=== PATIENT | male | born 1945 | race Caucasian/White ===

== ENCOUNTER 2017-07-22 11:01 | Inpatient (IN) | payer BC, OTHER ==
[2017-07-16 15:01] VITALS: BMI 28.0
--- NOTE | 2017-07-16 15:22 | PAT Medication Instructions ---
Service Date Jul 16, 2017. Current Home Medication List Aspirin (Aspirin Chewable), 81 MG PO QAM Atorvastatin (Lipitor), 40 MG PO QPM Cholecalciferol (Vitamin D3), 1 TAB PO QAM Diphenhydramine Hcl (Benadryl Allergy), 1 CAP PO HS Fish Oil ([place]-3), 1 CAP PO QAM Lisinopril (Zestril), 10 MG PO QAM Multivitamin (Multivitamin), 1 TAB PO QAM Omeprazole (Prilosec), 20 MG PO DAILY Ropinirole (Requip), 2-3 TAB PO HS Medication Instructions For Your Scheduled Surgery - Hold the following medications starting 07/17/17: Fish Oil ([place]-3), 1 CAP PO QAM - Hold the following medications 24 hours prior to surgery: Ropinirole (Requip), 2-3 TAB PO HS - Hold the following medications the morning of surgery: Multivitamin (Multivitamin), 1 TAB PO QAM Lisinopril (Zestril), 10 MG PO QAM Cholecalciferol (Vitamin D3), 1 TAB PO QAM - Take the following medications the morning of surgery with a sip of water: Aspirin (Aspirin Chewable), 81 MG PO QAM Omeprazole (Prilosec), 20 MG PO DAILY - Take the following medications as scheduled the night before surgery: Diphenhydramine Hcl (Benadryl Allergy), 1 CAP PO HS Atorvastatin (Lipitor), 40 MG PO QPM If you have any questions please call us at [phone] or [phone] or [phone]
[2017-07-16 15:52] LABS: BASO % 0.3 %; BASO ABS # 0.02 K/uL (0-0.2); EOS % 4.1 %; EOS ABS # 0.26 K/uL (0-0.5); HEMATOCRIT 42.6 % (42-52); HEMOGLOBIN 15.3 g/dL (14.0-18.0); IG# 0.01 K/uL (0.00-0.02); LYMPH % 18.9 %; MEAN CELL VOLUME 91.4 fL (80-100); MEAN CORPUSCULAR HEMOGLOBIN 32.8 pg (25-34); MEAN CORPUSCULAR HGB CONC 35.9 g/dl (32-36); MEAN PLATELET VOLUME 10.9 fL (7.4-10.4); MONO % 7.9 %; NEUT % 68.6 %; NEUT ABS # 4.36 K/uL (1.4-6.5); PLATELET COUNT 189 K/uL (130-400); RED CELL DISTRIBUTION WIDTH CV 12.6 % (11.5-14.5); WHITE BLOOD COUNT 6.35 K/uL (4.8-10.8)
[2017-07-16 16:00] LABS: PTT PATIENT 26.8 SECONDS (21.0-31.0)
--- NOTE | 2017-07-16 16:03 | DIAGNOSTIC IMAGING REPORT ---
CHEST 2 VIEWS ROUTINE HISTORY: Preop. COMPARISON: None. FINDINGS: The lungs are clear. Cardiac silhouette is normal in size. No pleural effusions. No pneumothorax. Right shoulder prosthesis. IMPRESSION: No acute process. Electronically signed by: Ha Butcher M.D. 07/16/2017 4:02 PM Dictated Date/Time: 07/16/2017 4:01 PM
[2017-07-16 16:18] LABS: CALCIUM 8.9 mg/dl (8.5-10.1); CREATININE 0.94 mg/dl (0.60-1.40); POTASSIUM 4.3 mmol/L (3.5-5.1)
--- NOTE | 2017-07-21 21:29 | HISTORY & PHYSICAL EXAMINATION ---
DATE OF ADMISSION: 07/22/2017 He is being preoped for a PLIF procedure L5-S1. CHIEF COMPLAINT: Back pain, lower extremity difficulty, paresthesias, numbness, tingling, associated weakness and walking alteration. MEDICAL HISTORY: Positive for heart murmur, hypertension, high cholesterol. No diabetes. No anemia. No asthma. No anxiety. No kidney or liver issues. No prostate issues. He has obesity and acid reflux. SOCIAL HISTORY: Nonsmoker, does use marijuana. SURGICAL HISTORY: Total knee replacement, right shoulder replacement. ALLERGIES: Negative. MEDICATIONS: Lisinopril, Lipitor, multivitamins, vitamin D, fish oil, aspirin. REVIEW OF SYSTEMS: Denies any blurred vision, double vision, tinnitus, vertigo. Denies chest pain, palpitations. Denies asthma, wheezing, shortness of breath. Denies nausea, vomiting, urgency, frequency, dysuria. PHYSICAL EXAMINATION: GENERAL: He is alert, oriented, mentation normal. VITAL SIGNS: Blood pressure 140/80, pulse 80, respiratory rate 16, temperature 97.4. HEENT: Pupils react to light and accommodation. Ear, nose and throat clear. CARDIAC: Normal S1, S2. No S3. LUNGS: Clear to auscultation. No asthma, wheezing, shortness of breath. No nausea, vomiting, urgency, frequency. MUSCULOSKELETAL: He has decreased range of motion of his lumbar spine. Pain with percussion of lumbar spine. NEUROLOGIC: Intact. X-rays demonstrate spondylolisthesis of the spine at L5-S1. PROCEDURE: Included posterior lumbar interbody fusion L5-S1.
[~2017-07-22] VITALS: Ht 170.2 cm; Wt 81.2 kg
[2017-07-22] VITALS (7 sets, daily range): BP systolic 123–161; BP diastolic 70–88; PULSE 62–89; TEMP 35.8–36.5; O2SAT 96–99; Ht 170.2 cm; Wt 81.2 kg
[~2017-07-22 11:01] MED LIST: ACETAMINOPHEN 500 MG TAB PO SCH; ACETAMINOPHEN IV 1000MG/100ML IV SCH; ASPCH81X PO; ATOR-24 PO; CEFAZOLIN 2000MG IV PUSH 15 ML IV SCH; CHOL1000 PO; CeleBREX 200 MG CAP PO SCH; DIPH25CA65 PO; GABAPENTIN 300 MG CAP PO SCH; LACTATED RINGER'S 1000ML 1,000 ML IV SCH; LISI-461 PO; MULT-506 PO; NSS 1000ML IV SCH; OMEG10007 PO; PRLSR20 PO; ROPI0.25 PO
[2017-07-22] MEDS ORDERED: MIDAZOLAM HCL 1 MG/ML 2ML VIAL ONE (11:23)
[2017-07-22] MEDS ORDERED: FENTANYL CITRATE INJ 50 MCG/1 ML 2 ML VIAL ONE (11:24)
[2017-07-22] MEDS ORDERED: GELATIN SPONGE OP 25X50MM 1 EA SPNG ONE (12:59)
[2017-07-22] MEDS ORDERED: BACITRACIN 50000 UNIT VIAL ONE (12:59)
[2017-07-22] MEDS ORDERED: BUPIVACAINE/EPINEPHRINE 0.5% MPF 1:200,000 30 ML VIAL ONE (12:59)
[2017-07-22] MEDS ORDERED: THROMBIN FOR SOLN 20000 UNIT KIT ONE (12:59)
--- NOTE | 2017-07-22 13:14 | History & Physical Bridge Note ---
H&P Re-Evaluation Bridge Note: I have examined the patient, reviewed the History & Physical and in the interval since the performance of the History & Physical I have noted the following changes of clinical significance: No changes noted
[2017-07-22] MEDS ORDERED: VANCOMYCIN HCL 1000MG/20ML VIAL ONE (13:25)
[2017-07-22] MEDS ORDERED: LARYING-O-JET KIT (LTA) ONE (14:15)
[2017-07-22] MEDS ORDERED: DEXAMETHASONE SOD INJ 4 MG/ML VIAL ONE (14:15)
[2017-07-22] MEDS ORDERED: LIDOCAINE HCL 2% 2 ML VIAL (20MG/ML) ONE (14:15)
[2017-07-22] MEDS ORDERED: GLYCOPYRROLATE INJ 0.2 MG/ML VIAL ONE (14:15)
[2017-07-22] MEDS ORDERED: HYDROmorphone INJ 2 MG/ML SYR/VIAL ONE (14:15)
[2017-07-22] MEDS ORDERED: ONDANSETRON INJ 2 MG/ML 2 ML VIAL ONE (14:15)
[2017-07-22] MEDS ORDERED: PROPOFOL IV EMULSION 10 MG/ML 20 ML VIAL IV ONE (14:15)
[2017-07-22] MEDS ORDERED: CISATRACURIUM BESYLATE IV SOLN 2 MG/ML 10 ML VIAL ONE (14:15)
[2017-07-22] MEDS ORDERED: NEOSTIGMINE METHYLSULFATE 5 MG/5 ML SYR ONE (14:15)
[2017-07-22] MEDS ORDERED: EpHEDrine SULFATE 50MG/5ML SYR ONE ×2 (14:15→15:18)
[2017-07-22] MEDS ORDERED: GELATIN SPONGE SZ 100 ONE (14:21)
[2017-07-22] MEDS ORDERED: ATROPINE SULFATE 0.1 MG/ML 5ML SYR IV PRN (15:15)
[2017-07-22] MEDS ORDERED: PROMETHAZINE HCL INJ 12.5 MG in SODIUM CHLORIDE 0.9% 50ML 50 ML IV PRN ×2 (15:15→16:15)
[2017-07-22] MEDS ORDERED: NALOXONE HCL 0.4 MG/1 ML VIAL/CARP IV PRN ×2 (15:15→16:15)
[2017-07-22] MEDS ORDERED: EpHEDrine SULFATE INJ 50 MG/ML AMP IV PRN (15:15)
[2017-07-22] MEDS ORDERED: FLUMAZENIL 0.1 MG/1 ML 10 ML VIAL IV PRN (15:15)
[2017-07-22] MEDS ORDERED: HYDROmorphone INJ 1 MG/ML SYR IV PRN (15:15)
[2017-07-22] MEDS ORDERED: ONDANSETRON INJ 2 MG/ML 2 ML VIAL IV PRN ×2 (15:15→16:15)
[2017-07-22] MEDS ORDERED: LABETALOL HCL IV 5 MG/ML 20ML IV PRN (15:15)
--- NOTE | 2017-07-22 15:54 | DIAGNOSTIC IMAGING REPORT ---
INTRAOPERATIVE LUMBAR SPINE SINGLE VIEW CLINICAL HISTORY: L5-S1 POSTERIOR LUMBAR INTERBODY FUSION COMPARISON STUDY: No previous studies for comparison. FINDINGS: A single lateral fluoroscopic spot film is provided for interpretation. 8 seconds of fluoroscopic time was utilized. There is a grade 1 spondylolisthesis of L5 on S1. There are postsurgical changes of discectomy and interbody fusion at the L5-S1 level. L5 and S1 pedicle screws are visualized. IMPRESSION: Intraoperative radiograph as described above. Electronically signed by: Anatoliy Gallegos M.D. 07/22/2017 3:52 PM Dictated Date/Time: 07/22/2017 3:51 PM
[2017-07-22] MEDS ORDERED: SODIUM CHLORIDE 0.9% 1000ML 1,000 ML IV SCH ×2 (16:01)
--- NOTE | 2017-07-22 16:03 | [facility] Post Operative Brief Note ---
Immediate Operative Summary Operative Date Jul 22, 2017. Pre-Operative Diagnosis Spondylisthesis of Spine L5-S1 Post-Operative Diagnosis Spondylisthesis of Spine L5-S1 Procedure(s) Performed L5-S1 Posterior Lumbar Interbody Fusion Surgeon Dr. Sidney Nelson Clinical Rehabilitation Coordinator Surgeon(s) Jose Go PA-C Estimated Blood Loss 250cc Findings Consistent with Post-Op Diagnosis Specimens None as per surgeon Drains hemovac Anesthesia Type General Complication(s) none Disposition Accompanied Pt To Recover: Disposition: Recovery Room / PACU
[2017-07-22] MEDS ORDERED: LORAZEPAM INJ 1 MG in SYRINGE 0.5 ML IV PRN (16:15)
[2017-07-22] MEDS ORDERED: ACETAMINOPHEN 325 MG TAB PO PRN (16:15)
[2017-07-22] MEDS ORDERED: MAGNESIUM HYDROXIDE SUSP 30 ML UDC PO PRN (16:15)
[2017-07-22] MEDS ORDERED: LORAZEPAM 1 MG TAB PO PRN (16:15)
[2017-07-22] MEDS ORDERED: METOCLOPRAMIDE HCL INJ 5 MG/ML 2 ML VIAL IV PRN (16:15)
[2017-07-22] MEDS ORDERED: CEFAZOLIN IV 1,000 MG in DEXTROSE 5% 50ML 50 ML IV SCH (16:15)
[2017-07-22 16:47] LABS: HEMATOCRIT 38.6 % (42-52); HEMOGLOBIN 13.6 g/dL (14.0-18.0)
--- NOTE | 2017-07-22 16:47 | Anesthesiology Progress Note ---
Anesthesia Post Op Note Date & Time Jul 22, 2017 at 16:47 Vital Signs Pain Intensity: 3 Vital Signs Past 12 Hours Date Time Temp Pulse Resp B/P (MAP) Pulse Ox O2 Delivery O2 Flow Rate FiO2 07/22/17 16:40 81 16 135/70 99 Nasal Cannula 4 07/22/17 16:30 90 14 155/74 100 Nasal Cannula 4 07/22/17 16:20 92 16 128/63 100 Oxymask 15 07/22/17 16:10 94 23 134/65 99 Oxymask 15 07/22/17 16:00 36.1 71 12 111/61 97 Oxymask 15 07/22/17 11:24 36.5 62 18 157/81 98 Room Air Notes Mental Status: alert / awake / arousable, participated in evaluation Pt Amnestic to Procedure: Yes Nausea / Vomiting: adequately controlled Pain: adequately controlled Airway Patency, RR, SpO2: stable & adequate BP & HR: stable & adequate Hydration State: stable & adequate Anesthetic Complications: no major complications apparent
[2017-07-22] MEDS: HYDROmorphone HCL 0.5MG/ML 50 ML CASSETTE IV PRN ×2 (17:10→22:52)
[2017-07-22] MEDS: ATORVASTATIN 40 MG TAB PO SCH (21:12)
[2017-07-22] MEDS: CEFAZOLIN IV 2,000 MG in SYRINGE 0 ML IV SCH (21:12)
[2017-07-22] MEDS: DEXAMETHASONE INJ 10 MG in SYRINGE 0 ML IV SCH (21:13)
[2017-07-22] MEDS ORDERED: NURSING VERBAL MED ORDER ONE (22:15)
--- NOTE | 2017-07-23 00:03 | OPERATIVE REPORT ---
DATE OF OPERATION: 07/22/2017 PREOPERATIVE DIAGNOSIS: Grade 1 spondylolisthesis, lumbar spine. POSTOPERATIVE DIAGNOSIS: Same. PROCEDURE: Included: 1. Lumbar spine laminectomy, foraminotomy, partial facetectomy. 2. Frankel procedure which is removal of the entire posterior elements of L5. 3. Pedicle screw instrumentation L5-S1. 4. Complete discectomy L5-S1. 5. Posterior lumbar interbody fusion packed with allograft and implant from the [employer]. 6. Posterolateral bilateral bone onlay fusion. SURGEON: Dr. Nelson. DUCT INSTALLER: Jose Go PA-C. COMPLICATIONS: Zero. BLOOD LOSS: 250. ANESTHETIC: General. DESCRIPTION OF PROCEDURE: The patient was taken to the operating room, a general intubated anesthetic provided to the patient, placed prone on the Tomi table. He was shaved, scrubbed, prepped and draped sterile. We made a skin incision and fascial incision, putting a deep self-retaining retractor. The visibility was perfect. We were out over the transverse process and sacral ala. I decompressed the neural elements. I was able to get the entire lamina of L5 removed. We completed the foraminotomies. We then safely got pedicle screws into L5 and the sacrum bilaterally. We then retracted the dura over in a medial direction from the right side. I was able to do a complete discectomy from the right hand side, putting in an interbody cage, preceded with autograft pack into the intervertebral area. We then tightened down the construct under compression, bone graft out of the transverse processes with autograft as well. Closed fascia to fascia over Hemovac drain over vancomycin powder with #1 Vicryl suture, 2-0 on the subcuticular layer and nylon on the skin. Sterile dressings applied. The patient returned to recovery room satisfactory and stable. There were no apparent interoperative complications. Implants used by the [employer]. Sponge and needle count correct at the close. I attest to the content of the Intraoperative Record and any orders documented therein. Any exception s are noted below.
[2017-07-23 03:10] VITALS: BP 120/70; PULSE 73; TEMP 36.4; O2SAT 97
[2017-07-23] MEDS ORDERED: COUGH DROP (SUGAR FREE) LOZ 24 LOZ/1 BOX LOZ ONE (04:36)
[2017-07-23] MEDS ORDERED: NURSING DECISION MEDICATION ORDER SCH (04:45)
[2017-07-23] MEDS: DEXAMETHASONE INJ 10 MG in SYRINGE 0 ML IV SCH ×3 (05:50→21:28)
[2017-07-23] MEDS: CEFAZOLIN IV 2,000 MG in SYRINGE 0 ML IV SCH ×2 (05:51→13:42)
[2017-07-23] MEDS ORDERED: BISACODYL 10 MG SUPP PR PRN (06:00)
[2017-07-23] MEDS ORDERED: BISACODYL 5 MG TABEC PO PRN (06:00)
[2017-07-23] MEDS ORDERED: COUGH DROP (SUGAR FREE) LOZ 24 LOZ/1 BOX LOZ PRN (07:00)
[2017-07-23] MEDS: HYDROmorphone HCL 0.5MG/ML 50 ML CASSETTE IV PRN (07:09)
[2017-07-23 07:43] VITALS: BP 124/67; PULSE 88; TEMP 36.4; O2SAT 98
[2017-07-23] MEDS ORDERED: OXYCODONE/ACETAMINOPHEN 5-325 TAB PO PRN (08:00)
[2017-07-23] MEDS ORDERED: HYDROmorphone INJ 1 MG/ML SYR IV PRN (08:00)
[2017-07-23] MEDS ORDERED: HYDROmorphone INJ 2 MG/ML SYR/VIAL IV PRN (08:00)
[2017-07-23] MEDS ORDERED: DC PCA SCH (08:00)
[2017-07-23] MEDS: ASPIRIN 81 MG ECTAB PO SCH (08:46)
[2017-07-23] MEDS: PANTOprazole SOD 40 MG TAB PO SCH (08:47)
[2017-07-23] MEDS: MULTIVITAMIN TAB PO SCH (08:47)
[2017-07-23] MEDS: LISINOPRIL 10 MG TAB PO SCH (08:47)
[2017-07-23] MEDS: POLYETHYLENE (MIRALAX) 17 GM PACK PO SCH (08:48)
[2017-07-23] MEDS: OXYCODONE/ACETAMINOPHEN 5-325 TAB PO PRN ×2 (09:58→10:57)
[2017-07-23] MEDS ORDERED: NURSING VERBAL MED ORDER ONE ×3 (10:30→18:45)
[2017-07-23] MEDS ORDERED: CHLORASEPTIC 1.4% SOLN 180 ML BTL MT PRN (11:00)
[2017-07-23 11:56] VITALS: BP 120/66; PULSE 65; TEMP 36.6; O2SAT 96
[2017-07-23] MEDS ORDERED: HYDR-4383 PO (12:49)
--- NOTE | 2017-07-23 12:50 | Discharge Instructions ---
Discharge Instructions Date of Service Jul 23, 2017. Admission Reason for Admission: Spondylolisthesis Discharge Discharge Diagnosis / Problem: same Discharge Goals Goal(s): Improve function Activity Recommendations Activity Limitations: as noted below Lifting Limitations: until after follow-up appointment Exercise/Sports Limitations: until after follow-up appointment . Instructions / Follow-Up Instructions / Follow-Up MEDICATIONS: Please take your prescriptions as instructed at your pre-op appointment. SPECIAL CARE: The following information is intended to answer some of the common questions and concerns regarding your surgery. Each patient is an individual and receives individual counselling throughout the course of treatment, from diagnosis to surgery all the way through recovery. What follows is not an exhaustive list, but should be a useful guide to some of the common questions and concerns patients have regarding their surgeries. These are not provided to keep you from calling us; rather, they give you something accurate and concrete to reference as you recover from your procedure. If you need us, we are available to you. As always, if you are not sure about something, call us at [phone]. MEDICAL EMERGENCIES: For these conditions, call 911 or go to your local hospital-based Emergency Department - not [facility] or equivalent. * Paralysis * Severe chest pain or difficulty breathing * Swelling or redness of either leg Spine procedures can be rather complex and though complications are rare, they do occur. In such cases, effective advice regarding emergency situations cannot always be addressed over the telephone. You may be referred to the emergency department for more effective management of your problem. Activity Limitations: It is important to give your body time to heal, so please limit your activities : * In general, don't do anything that moves your spine too much. You should avoid contact sports, twisting or heavy lifting while you recover. * 5-10 pounds is all you should attempt to lift. * You should not plan on driving for approximately 3 weeks and you should avoid traveling more than 30-45 minutes at a time. Longer trips should be broken down with walking breaks spaced appropriately. * Physical therapy is not usually required. * Walking and good posture practices will help you recover and regain your function. * Avoid straining or sudden changes in position. * In general, the goal is to take it easy and recover. Don't cause any new problems. Just relax. Showers: * Do not take a bath, use a Jacuzzi or hot tub or otherwise submerge your incision. * It is usually safe to take a shower 4-5 days after your surgery. * Your incision does not require any special creams or ointments. * Simply clean it with soap and water, dry and re-dress with a clean bandage afterwards. Incision: * Keep incision clean, dry and protected until your first follow-up appointment. * Some amount of drainage and redness is normal. Any drainage should be fairly clear and not have a foul odor. * If you feel anything is wrong or you have excessive drainage, please call us. * Your stitches and ernesto will be removed 10-14 days after your surgery. At the time of your first post-op visit. * Neck surgeries are typically closed with a suture underneath the skin. The steri-strips over the incision should be maintained until we see you in the office. Bracing: * You may be provided with a back or neck brace to encourage good posture and prevent injury. It will remind you not to do too much as you heal and will alert others to the fact that you have had a surgery. * Back braces may be removed for showers and when you are resting at home. They must be worn when you are walking around for any period of time or for travel. * For neck surgery, you will likely be provided with two cervical collars. The soft collar (Woodruff or foam rubber) is worn most commonly throughout the day and while sleeping. The plastic collar (provided at the hospital) is for showering/bathing. * Except while eating, collars should remain in place. More specifically, bracing is provided for a purpose and should be worn. * Please obtain your brace or collars prior to your operation and bring them to the hospital with you on the day of surgery. * You should also bring your collars to your post-op appointment with Dr. Nelson. You should always take good care of your body and practice healthy habits, especially following surgery. You should: * Follow your doctor's treatment plan * Sit and stand properly with good posture (ears over shoulders, shoulders over hips) Don't slouch * Learn to lift correctly * Exercise regularly (low-impact aerobic exercise is especially good, but check with your doctor first) * Generally, be up and walking for 5-10 minutes at a time at least 3-4 times per day from the day you get home * Increasing walking to tolerance until you can walk for 20-30 minutes at a time * Attain and maintain a healthy body weight * Eat healthy foods ( a well-balanced, low-fat diet rich in fruits and vegetables) and get enough calcium * Avoid excessive use of alcohol When to call our office - If you notice any of the following: * Increased pain not relieve by pain medicine * Fevers greater then 100 degrees F, chills or flu symptoms * Increased redness around incision * Drainage from the incision that is not clear * Any foul smelling drainage * Swelling or fluid collection beneath the skin Miscellaneous: * In the hospital, you may be given a walker or cane for support while walking. These are temporary needs and are intended to prevent injuries due to falls. You may discontinue them when you feel strong and steady enough on your feet. * Sleep in a comfortable position. We find that many patients find a lounge chair or recliner with several pillows to be beneficial in the early post-operative period. * The support stockings should be used for 7-10 days and may be discontinued when you are back to walking more and conducting usual household activities. No problem is insignificant. We are here to help you and get you well. Contact us at [phone]. Definitions: Foraminotomy: If part of the disc or a bone spur (osteophyte) is pressing on a nerve as it leaves the vertebra (through an exit called the foramen), a foraminotomy may be done. Otomy means "to make an opening." A foraminotomy is making the opening of the foramen larger, so the nerve can exit without being compressed. Laminotomy: Similar to the foraminotomy, a laminotomy makes a larger opening, this time in your bony plate protecting your spinal canal and spinal cord (the lamina). The lamina may be pressing on your nerve, so the surgeon may make more room for the nerves using a laminotomy. Laminectomy: Sometimes, a laminotomy is not sufficient. The surgeon may need to remove all or part of the lamina. This procedure is called a laminectomy. This can often be done at many levels without any harmful effects. Current Hospital Diet Patient's current hospital diet: Regular Diet Discharge Diet Recommended Diet: Regular Diet Procedures Procedures Performed: L5-S1 Posterior Lumbar Interbody Fusion Pending Studies Studies pending at discharge: no Medical Emergencies . Who to Call and When: Medical Emergencies: If at any time you feel your situation is an emergency, please call 911 immediately. . Non-Emergent Contact Non-Emergency issues call your: Primary Care Provider . "Provider Documentation" section prepared by Sidney Nelson. . VTE Core Measure Inpt VTE Proph given/why not?: Treatment not indicated
--- NOTE | 2017-07-23 13:03 | ORTHOPEDICS PROGRESS NOTE ---
DATE: 07/23/2017 Improved, stable. Pain is well controlled. No gross neurological issues. Alert, oriented. No chest pain or shortness of breath. OBJECTIVE: VITAL SIGNS: Stable. GENERAL: A pleasant gentleman, he is only 18 hours post surgery, doing fairly well in short run. DISPOSITION: Includes instructions, precautions, education. We will see him back and we will hopefully get him discharged home tomorrow. Medications offered as well.
--- NOTE | 2017-07-23 15:55 | Anesthesiology Progress Note ---
Anesthesia Post Op Note Date & Time Jul 23, 2017 at 15:54 Vital Signs Vital Signs Past 12 Hours Date Time Temp Pulse Resp B/P (MAP) Pulse Ox O2 Delivery O2 Flow Rate FiO2 07/23/17 11:56 36.6 65 16 120/66 (84) 96 Room Air 07/23/17 07:43 36.4 88 18 124/67 (86) 98 Room Air 07/23/17 07:25 Room Air Notes Mental Status: alert / awake / arousable, participated in evaluation Pt Amnestic to Procedure: Yes Nausea / Vomiting: adequately controlled Pain: adequately controlled Airway Patency, RR, SpO2: stable & adequate BP & HR: stable & adequate Hydration State: stable & adequate Anesthetic Complications: no major complications apparent
[2017-07-23] MEDS ORDERED: HYDROCODONE/ACETAMIN 5/325MG TAB PO PRN (19:30)
[2017-07-23] MEDS: ATORVASTATIN 40 MG TAB PO SCH (20:10)
[2017-07-23 23:10] VITALS: BP 128/69; PULSE 77; TEMP 36.4; O2SAT 96
[2017-07-24] MEDS: DEXAMETHASONE INJ 10 MG in SYRINGE 0 ML IV SCH (05:22)
[2017-07-24 06:20] VITALS: BP 107/64; PULSE 60; TEMP 36.6; O2SAT 94
[2017-07-24] MEDS: PANTOprazole SOD 40 MG TAB PO SCH (07:17)
[2017-07-24] MEDS: POLYETHYLENE (MIRALAX) 17 GM PACK PO SCH (07:17)
[2017-07-24 08:01] VITALS: BP 118/78; PULSE 80; TEMP 36.3; O2SAT 96
[2017-07-24 08:44] VITALS: O2SAT 96
[2017-07-24] MEDS: LISINOPRIL 10 MG TAB PO SCH (09:26)
[2017-07-24] MEDS: ASPIRIN 81 MG ECTAB PO SCH (09:26)
[2017-07-24] MEDS: MULTIVITAMIN TAB PO SCH (09:26)
[2017-07-24 12:03] VITALS: BP 118/66; PULSE 86; TEMP 36.8; O2SAT 94
--- NOTE | 2017-07-25 11:51 | DISCHARGE SUMMARY ---
HISTORY OF PRESENT ILLNESS: Improved stable. Reconstructive spinal surgery. He has done well with his spondylolisthesis. Better motion, decreased pain. Alert, oriented. ____ pain, no shortness of breath. Vital signs stable. ASSESSMENT: Status post reconstructive spinal surgery, doing well short run. No issues. DISPOSITION: Includes discharge home. Instructions, precautions, back brace and medication.
== END 2017-07-24 12:35 | disposition home health service (06) | DRG 455 ==
LOC: C.ACU 11:01 → C.3E 16:06 → ENRESERV 16:46
PROVIDERS: ADMIT Orthopaedic Surgery Orthopaedic Surgery of the Spine; ATTEND Orthopaedic Surgery Orthopaedic Surgery of the Spine
PROC: 0ST40ZZ Resection of Lumbosacral Disc, Open Approach (ICD-10-PCS; principal; 2017-07-22 12:30)
PROC: 0SG30AJ Fusion of Lumbosacral Joint with Interbody Fusion Device, Posterior Approach, Anterior Column, Open Approach (ICD-10-PCS; principal; 2017-07-22 12:30)
PROC: 0SG3071 Fusion of Lumbosacral Joint with Autologous Tissue Substitute, Posterior Approach, Posterior Column, Open Approach (ICD-10-PCS; principal; 2017-07-22 12:30)
PROC: 0QB00ZZ Excision of Lumbar Vertebra, Open Approach (ICD-10-PCS; principal; 2017-07-22 12:30)
DX: M43.17 Spondylolisthesis, lumbosacral region (principal); I10 Essential (primary) hypertension; E78.00 Pure hypercholesterolemia, unspecified; Z68.28 Body mass index [BMI] 28.0-28.9, adult; E66.9 Obesity, unspecified; Z79.899 Other long term (current) drug therapy; Z79.82 Long term (current) use of aspirin

== ENCOUNTER 2020-10-03 08:15 | Inpatient (IN) ==
--- NOTE | 2020-09-05 16:39 | PAT Medication Instructions ---
Medication Instructions Date of Service September 05, 2020 Home Medications Medication Instructions Recorded potassium citrate 10 mEq (1,080 10 meq PO BID #60 tab 08/02/20 mg) tablet,extended release tamsulosin 0.4 mg capsule 0.4 mg PO BID atorvastatin 40 mg tablet 20 mg PO HS cholecalciferol (vitamin D3) 25 mcg (1,000 unit) capsule 25 mcg PO QPM diphenhydramine HCl 25 mg capsule 25 mg PO HS multivitamin 1 tab PO QPM omega 1-bpx-snl-fish oil 60 mg-90 mg-500 mg capsule 1 cap PO QPM potassium citrate 10 mEq (1,080 mg) tablet,extended release 10 meq PO BID hydrocodone-acetaminophen 1 tab PO BID PRN loperamide [Imodium] 2 mg PO QPM ropinirole 0.5 mg PO 5XD STOP taking 2 weeks before surgery If surgery is within 2 weeks, stop taking as soon as possible. omega 5-ycj-zwi-fish oil 60 mg-90 mg-500 mg capsule 1 cap PO QPM DO NOT take the morning of surgery potassium citrate 10 mEq (1,080 mg) tablet,extended release 10 meq PO BID Take morning of surgery With a small sip of water, OTHERWISE NOTHING TO EAT OR DRINK AFTER MIDNIGHT: tamsulosin 0.4 mg capsule 0.4 mg PO BID hydrocodone-acetaminophen 1 tab PO BID PRN (if needed, may be taken up to four hours before surgery) ropinirole 0.5 mg PO 5XD Take evening before surgery tamsulosin 0.4 mg capsule 0.4 mg PO BID atorvastatin 40 mg tablet 20 mg PO HS cholecalciferol (vitamin D3) 25 mcg (1,000 unit) capsule 25 mcg PO QPM diphenhydramine HCl 25 mg capsule 25 mg PO HS multivitamin 1 tab PO QPM potassium citrate 10 mEq (1,080 mg) tablet,extended release 10 meq PO BID hydrocodone-acetaminophen 1 tab PO BID PRN (if needed) loperamide [Imodium] 2 mg PO QPM ropinirole 0.5 mg PO 5XD Other Notes If you have any questions please call us at [phone] or [phone] or [phone] or [phone]
--- NOTE | 2020-09-06 14:48 | Anesthesiology Consultation ---
Date of Service September 06, 2020 Assessment & Plan (1) Encounter for pre-operative examination: COVID Status: As of 09/06 assessment, patient denies travel to endemic area, known exposure/sick contacts, or symptoms of COVID19. Patient instructed that they and their household members must follow strict social distancing guidelines, wear a mask in public and avoid travel/events/gatherings for 14 days prior to surgery. Preoperative COVID19 testing to be completed prior to surgery per surgeon's arrangements. Patient made aware to self-isolate as much as possible between COVID testing and surgery. Chart Review Chart Review: Acceptable Risk for Surgery and Patient seen in Pre Admission Testing Teaching & Discussion Instructed NPO after midnight before surgery, except medications with 15 cc of water. Medication instructions provided according to the PAT guidelines. History Surgery Operation Date: 10/03/20 07:30 Proposed Procedures p Removal of Right Total Shoulder Arthroplasty, Revision to Right Reverse Total Shoulder Arthroplasty - Jose Silverman, Height/Weight Height: 5 ft 7 in Weight: 69.2 kg Allergies Allergy/AdvReac Type Severity Reaction Status Date / Time No Known Allergies Allergy Unknown Verified 08/18/20 14:17 Medications Home Medications Medication Instructions Recorded Confirmed Last Taken tamsulosin 0.4 mg capsule 0.4 mg PO BID 05/06/19 08/18/20 Unknown atorvastatin 40 mg tablet 20 mg PO HS 08/02/20 08/18/20 Unknown cholecalciferol (vitamin D3) 25 25 mcg PO QPM 08/02/20 08/18/20 Unknown mcg (1,000 unit) capsule diphenhydramine HCl 25 mg capsule 25 mg PO HS cap 08/02/20 08/18/20 Unknown multivitamin 1 tab PO QPM 08/02/20 08/18/20 Unknown omega 8-wau-yvt-fish oil 60 mg-90 1 cap PO QPM 08/02/20 08/18/20 Unknown mg-500 mg capsule potassium citrate 10 mEq (1,080 10 meq PO BID #60 tab 08/02/20 08/18/20 Unknown mg) tablet,extended release hydrocodone-acetaminophen 1 tab PO BID PRN 08/18/20 08/18/20 Unknown loperamide [Imodium] 2 mg PO QPM 08/18/20 08/18/20 Unknown ropinirole 0.5 mg PO 5XD 08/18/20 08/18/20 Unknown Past Medical History Medical History Depression NO MEDS Enlarged prostate History of prediabetes DIET MANAGED Hypertension MED D/C'D-UNDER CONTROL Restless leg syndrome Temporomandibular joint disorder SPASMS RIGHT SIDE NO LOCKING Exercise / Class Metabolic Activity II 4-5 Yardwork/Stairs/Walk up hill Past Family History Family History Mother No problems noted. Father Heart disease Family history of diabetes mellitus Brother Family history of diabetes mellitus Family history of esophageal cancer Past Surgical History Surgical History History of colonoscopy History of lumbar fusion Hx of total knee arthroplasty R/L Hx of total shoulder replacement RIGHT Past Anesthesia History No Hx of Anesthesia Complications and No Family Hx of Anesthesia Complications History of PONV No Hx of PONV and No Hx of Motion Sickness Social History Smoking Status: Never smoker Do You Dip or Chew Tobacco: No Hx Alcohol Use: Yes Alcohol type: beer alcohol intake frequency: holidays/special occasions only Hx Substance Use: No substance use type: marijuana Substance Use Type Other:: GUMMIES WITH MARIJUANA PO-NONE PAST YR Review of Systems Pt denies any recent chest pain, shortness of breath, palpitations, cough, feve r, URI, or uncontrolled acid reflux. +mild cold symptoms, recovering/improving. Physical Exam Vital Signs BP: 131/71 P: 51bpm (asymptomatic) SPO2: 97% RA T: 98.2 F R: 16 ENMT Mouth: + dentures (does not wear) and + dental restorations (few caps); no chipped teeth and no loose teeth Thyromental Distance: < 3.5 Finger Breadths (3) Mallampati Class: II Neck normal visual inspection and + facial hair (short christine); neck extension not limited Respiratory normal respiratory effort, lungs clear to auscultation Cardiovascular Rate/Rhythm: regular rhythm and + bradycardic Heart Sounds: no murmur Vessels: no carotid bruit Extremities: no edema Testing Laboratory Results 09/06/20 15:00 09/06/20 15:00 PT 10.4 Seconds (9.0-12.0) 09/06/20 15:00 INR 1.0 (0.9-1.1) 09/06/20 15:00 APTT 28.2 Seconds (21.0-31.0) 09/06/20 15:00 Blood Type O Positive 09/06/20 15:00 Antibody Screen NEGATIVE 09/06/20 15:00 Electrocardiogram Date: 09/06/20 Findings: + SB @ (51bpm) Otherwise normal EKG. Compared with EKG of 07/16/2017, no significant changes found. Chest X-Ray Date: 09/06/20 FINDINGS: PA and lateral chest radiographs are compared to study dated 07/16. The cardiomediastinal silhouette is unremarkable noting atherosclerotic calcification of the thoracic aorta. The lungs and pleural spaces are clear. There is no pneumothorax. The skeletal structures are osteopenic. The bony thorax appears intact. A right shoulder arthroplasty is in place. IMPRESSION: No active disease in the chest.
--- NOTE | 2020-09-06 15:23 | XRay Report ---
TWO VIEW CHEST CLINICAL HISTORY: Preoperative examination. Right shoulder arthroplasty revision. Loosening of a shou lder arthroplasty. FINDINGS: PA and lateral chest radiographs are compared to study dated 07/16/2017. The cardiomediastin al silhouette is unremarkable noting atherosclerotic calcification of the thoracic aorta. The lungs and pleural spaces are clear. There is no pneumothorax. The skeletal structures are osteopenic. The b primitivo thorax appears intact. A right shoulder arthroplasty is in place. IMPRESSION: No active disease in the chest. ACT 112: Negative or not required by law. Electronically signed by: Roman Cruz M.D. 09/06/2020 3:22 PM
[2020-09-06 16:10] LABS: Basophils # (auto) 0.01 K/uL (0-0.2); Basophils % (auto) 0.2 %; Eosinophils # (auto) 0.13 K/uL (0-0.5); Eosinophils % (auto) 2.1 %; Hematocrit (blood only) 44.1 % (42-52); Hemoglobin 15.5 g/dL (14.0-18.0); Immature Granulocytes # (auto) 0.01 K/uL (0.00-0.02); Immature Granulocytes % (auto) 0.2 %; Lymphocytes # (auto) 1.32 K/uL (1.2-3.4); Lymphocytes % (auto) 21.7 %; Mean Corpuscular Hemoglobin 32.8 pg (25-34); Mean Corpuscular Hgb Conc 35.1 g/dL (32-36); Mean Corpuscular Volume 93.2 fL (80-100); Mean Platelet Volume 12.2 fL (7.4-10.4); Monocytes # (auto) 0.67 K/uL (0.11-0.59); Neutrophils # (auto) 3.95 K/uL (1.4-6.5); Neutrophils % (auto) 64.8 %; Platelet Count 192 K/uL (130-400); RDW Coefficient of Variation 12.9 % (11.5-14.5); RDW Standard Deviation 44.3 fL (36.4-46.3); Red Blood Count 4.73 M/uL (4.7-6.1); White Blood Count 6.09 K/uL (4.8-10.8)
[2020-09-06 16:31] LABS: Partial Thromboplastin Ratio 1.1; Partial Thromboplastin Time 28.2 Seconds (21.0-31.0); Prothrombin Time 10.4 Seconds (9.0-12.0)
[2020-09-06 16:53] LABS: BUN Creatinine Ratio 15.2 (10-20); Calcium 8.5 mg/dl (8.5-10.1); Creatinine Clr Calc Pharmacy 76.1 ml/min; Potassium 4.2 mmol/L (3.5-5.1)
--- NOTE | 2020-09-07 06:52 | Electrocardiogram Report ---
Test Reason : Blood Pressure : / mmHG Vent. Rate : 051 BPM Atrial Rate : 051 BPM P-R Int : 176 ms QRS Dur : 084 ms QT Int : 434 ms P-R-T Axes : 060 058 051 degrees QTc Int : 400 ms Sinus bradycardia Otherwise normal ECG When compared with ECG of 16-JUL-2017 15:37, No significant change was found Confirmed by Brian Diana ([id number]) on 09/07/2020 6:52:08 AM Referred By: Jose Silverman Confirmed By:Brian Diana
--- NOTE | 2020-10-03 06:32 | History & Physical Report ---
Date of Service October 03, 2020 Assessment & Plan (1) Loosening of shoulder joint prosthesis: We will proceed with a removal of the implants and a conversion to a right reverse shoulder arthroplasty. Postoperatively he will be kept overnight in the hospital for postoperative pain management. He has not decided on physical therapy yet upon discharge. History of Present Illness Chief Complaint: Aseptic loosening right shoulder. Primary Care Provider: Sidney Conklin MD Anthony is a pleasant 75-year-old male who had a right shoulder replacement done about 7 years ago in [place]. Apparently the glenoid size was too small and it migrated medially. He now has an unstable glenoid and a painful shoulder. I have talked to him extensively about revision replacement. We did a full infection work-up which was negative. We sent him up for a Biomet VRS reverse shoulder replacement. After discussions in the office, he elected to proceed.. Allergies Allergy/AdvReac Type Severity Reaction Status Date / Time No Known Allergies Allergy Unknown Verified 09/13/20 09:08 Home Medications Medication Instructions Recorded Confirmed Type atorvastatin 40 mg tablet 20 mg PO HS 08/02/20 09/13/20 History cholecalciferol (vitamin D3) 25 25 mcg PO QPM 08/02/20 09/13/20 History mcg (1,000 unit) capsule diphenhydramine HCl 25 mg capsule 25 mg PO HS cap 08/02/20 09/13/20 History multivitamin 1 tab PO QPM 08/02/20 09/13/20 History omega 1-qqw-dbn-fish oil 60 mg-90 1 cap PO QPM 08/02/20 09/13/20 History mg-500 mg capsule potassium citrate 10 mEq (1,080 10 meq PO BID #60 tab 08/02/20 09/13/20 Rx mg) tablet,extended release hydrocodone-acetaminophen 1 tab PO BID PRN 08/18/20 09/13/20 History loperamide [Imodium] 2 mg PO QPM 08/18/20 09/13/20 History ropinirole 0.5 mg PO 5XD 08/18/20 09/13/20 History dutasteride 0.5 mg capsule 0.5 mg PO DAILY #30 cap 09/13/20 09/13/20 Rx tamsulosin 0.4 mg capsule 0.4 mg PO BID #180 cap 09/13/20 09/13/20 Rx Past Med/Surg History Medical History Depression NO MEDS Enlarged prostate History of prediabetes DIET MANAGED Hypertension MED D/C'D-UNDER CONTROL Restless leg syndrome Temporomandibular joint disorder SPASMS RIGHT SIDE NO LOCKING Surgical History History of colonoscopy History of lumbar fusion Hx of total knee arthroplasty R/L Hx of total shoulder replacement RIGHT Family History Mother No problems noted. Father Heart disease Family history of diabetes mellitus Brother Family history of diabetes mellitus Family history of esophageal cancer Social History Smoking Status: Never smoker Second Hand Exposure: Yes (2 BROTHERS SMOKED); Hx Alcohol Use: Yes Alcohol type: beer Hx Substance Use: No Preferred Language: Maldivian Communication Ability: Effective Petroleum Sampler Required: No Beliefs That Will Affect Care: None Current Living Situation: Alone current occupational status: retired Feels Safe at Home: Yes Assistive Devices: Denture - Upper, Denture - Lower and Glasses Review of Systems All systems reviewed & are unremarkable except as noted in HPI & below. Physical Exam Physical examination of the right shoulder, he has about 140 degrees forward elevation 40 degrees of abduction and 40 degrees of external rotation. He has 4+ out of 5 motion of the full can testing. He has pain at end ranges of motion.. Constitutional WD/WN, vitals as above Eyes PERRL, conjunctivae normal, anicteric sclerae ENMT external ear and nose normal, oropharynx normal Neck trachea midline, no thyromegaly Respiratory normal respiratory effort Cardiovascular RRR, no murmur, no edema Gastrointestinal (Abdomen) normal bowel sounds, soft, nontender, no hepatosplenomegaly Psychiatric A+Ox3, euthymic affect Results & Data Results & Data Laboratory Results . Diagnostic Findings X-rays of the right shoulder do show signs of loosening of the glenoid component with medialization of the humerus and joint line.. PG Care Time/CCT Total # of Minutes Spent Total Time Spent with Patient: Total time spent is greater than 50% in coordination of care (as documented) at patient's floor/unit and/or counseling patient: Coding Level of Care Code None Diagnoses Loosening of shoulder joint prosthesis T84.038A; Z96.619
[~2020-10-03 08:15] MED LIST changes: -ACETAMINOPHEN IV 1000MG/100ML IV SCH; -ASPCH81X PO; -ATOR-24 PO; +BUPIVACAINE 0.5 % 5 MG/1 ML PF 10ML VIAL ONE; -CEFAZOLIN 2000MG IV PUSH 15 ML IV SCH; -CHOL1000 PO; -CeleBREX 200 MG CAP PO SCH; -DIPH25CA65 PO; +FAMOTIDINE 20 MG TAB PO SCH; -LACTATED RINGER'S 1000ML 1,000 ML IV SCH; -LISI-461 PO; +LR 15ML/HR IV SCH; +LR 60ML/HR IV SCH; -MULT-506 PO; -NSS 1000ML IV SCH; -OMEG10007 PO; -PRLSR20 PO; -ROPI0.25 PO; +ROPIVACAINE 0.5% HCL/PF 150 MG, BUPIVACAINE 0.75% MPF 20 ML, EPINEPHrine 30MG/30ML (OR ... INSTIL SCH; +TRANEXAMIC ACID 1,000 MG **IV Intra-op IV SCH; +TRANEXAMIC ACID 1,000 MG **IV Pre-op IV SCH; +ceFAZolin 1000MG 1,000 MG/7.5 ML SYR IV SCH; +dexAMETHasone 4 MG TAB PO SCH
[2020-10-03] MEDS ORDERED: PROPOFOL IV EMULSION 10 MG/ML 20 ML VIAL IV ONE (10:39)
[2020-10-03] MEDS ORDERED: MIDAZOLAM HCL 1 MG/ML 2ML VIAL ONE (10:39)
[2020-10-03] MEDS ORDERED: ROCURONIUM BROMIDE 10 MG/ML 5 ML VIAL IV ONE (10:39)
[2020-10-03] MEDS ORDERED: ONDANSETRON INJ 2 MG/ML 2 ML VIAL ONE (10:39)
[2020-10-03] MEDS ORDERED: fentaNYL citrate 100 MCG/2 ML VIAL ONE ×2 (10:39→13:43)
[2020-10-03] MEDS ORDERED: DEXAMETHASONE SOD INJ 4 MG/ML VIAL ONE ×2 (10:39→12:48)
[2020-10-03] MEDS ORDERED: LIDOCAINE HCL 2% 2 ML VIAL/AMP(20MG/ML) INFIL ONE (10:39)
[2020-10-03] MEDS ORDERED: ePHEDrine sulfate 50 MG/ML AMP IV PRN (11:32)
[2020-10-03] MEDS ORDERED: ATROPINE SULFATE 0.1 MG/ML 10ML SYR IV PRN (11:32)
[2020-10-03] MEDS ORDERED: ONDANSETRON INJ 2 MG/ML 2 ML VIAL IV PRN ×2 (11:32→15:57)
[2020-10-03] MEDS ORDERED: fentaNYL citrate 100 MCG/2 ML VIAL IV PRN (11:32)
[2020-10-03] MEDS ORDERED: ORTHO JOINT ANESTHETIC ONE (11:58)
[2020-10-03] MEDS ORDERED: ePHEDrine sulfate 50 MG/ML AMP ONE (12:52)
[2020-10-03] MEDS ORDERED: SODIUM CHLORIDE 0.9% INJ 10 ML VIAL ONE (12:52)
[2020-10-03] MEDS ORDERED: PHENYLEPHRINE 100MCG/ML 5ML SYR ONE (14:09)
[2020-10-03] MEDS ORDERED: GLYCOPYRROLATE 0.2 MG/ML VIAL ONE (14:28)
[2020-10-03] MEDS ORDERED: NEOSTIGMINE METHYLSULFATE 5 MG/5 ML SYR ONE (14:28)
--- NOTE | 2020-10-03 14:44 | Operative Report ---
PG Post Operative Report Pre & Post Diagnosis Operation Date: 10/03/20 10:40 Pre-Op Diagnosis: Aseptic loosening of the right glenoid Post-Op Diagnosis: Aseptic loosening of the right glenoid I identified the patient and participated in the time-out.: Yes Procedure Operation Date: 10/03/20 10:40 Actual Procedures p Removal of Right Total Shoulder Arthroplasty, Revision to Right Reverse Total Shoulder Arthroplasty(Right) - Jose Silverman DO Surgeon Jose Silverman, Utility Hand Jose Go PAC Estimated Blood Loss 300 Findings Consistent with Post-Op Diagnosis Specimens None Complications none Disposition Disposition: Recovery Room Indications Anthony is a pleasant 75-year-old male who underwent a right total shoulder arthroplasty in 2012 in [place]. He initially did well postoperatively but then began having increased pain in his shoulder. He has since moved to the area. X-rays, CT scan were diagnostic for aseptic loosening of the right glenoid. After failing conservative treatment, he elected proceed with a removal of the total shoulder arthroplasty and conversion to a right reverse shoulder replacement. Description of Procedure On October 03, 2020 Anthony arrived at [facility] for the above procedure. He was seen in the preoperative holding area and the operative extremity was identified and signed. He was given a preoperative antibiotic and a right interscalene nerve block. He was taken back to the operating room and laid on the table in supine position. He was put under general anesthesia. He was put into the beachchair position. The right shoulder was prepped and draped in sterile fashion. A timeout was done. The patient and the operative extremity was properly identified. The previous deltopectoral incision was opened back up. Dissection was taken down through the fascia. The old deltopectoral interval was found and opened back up. Time was spent removing scar tissue from the subdeltoid and subacromial space. Time was also taken to remove scar tissue from the subcoracoid space and under the conjoined tendon. Once everything was freed up the subscapularis was tenotomized off the lesser tuberosity with a peel technique. The humeral head was then exposed. The humeral head was then removed. A tapered router bit was then taken around the prosthesis and the humeral prosthesis was removed with a slap hammer. The glenoid was then expos ed. The glenoid was grossly loose and easily removed with my fingers. Time was then spent doing a complete glenoid exposure. Significant time was spent removing all soft tissue from the face of the glenoid. The scapular spine was also partially exposed with care not to disrupt the suprascapular nerve. Once I had adequate exposure a Biomet VR S guide was then fit into place. Once I was happy with the fit to guidepins were placed. A central screw was placed followed by locking screws in a clockwise fashion. I was able to get excellent purchase with all screws. The wound was then irrigated. The surrounding soft tissues were injected with 100 cc of an orthopedic pain control cocktail. A 40 mm standard eccentric glenosphere was then impacted into place. The proximal humerus was then exposed. Sequential reaming up to a size 7 reamer was done. Parenteral broaching up to a size 7 broach was done. A +6 offset humeral tray with a standard bearing was then trialed. The shoulder was reduced. The shoulder was brought through a full range of motion and felt to be stable. The trials were then removed. The final size 7 Biomet comprehensive mini implant was then impacted in the place. A standard humeral bearing was then snapped into a +6 offset humeral tray. The humeral tray was then impacted onto the humeral stem. The shoulder was then reduced. The shoulder was brought through full range of motion and felt to be stable. The wound was then irrigated. The axillary nerve was palpated. The subscapularis was tenodesed back to the lesser trochanter with transosseous FiberWire sutures. A 3-minute Betadine lavage was done. The deltopectoral interval was closed with 2-0 Vicryl suture. Skin was closed with 3-0 Vicryl and ernesto. He was then placed in a soft dressing. He was placed in a regular arm sling. He was then extubated and transferred to a [facility]. He was taken to the postanesthesia care unit in stable condition. He tolerated procedure well. Jose Go PA-C, was present for the entire procedure. He was critical for patient positioning, prepping, draping, retraction exposure, wound closure and application of sterile dressing. I attest to the content of the Intraoperative Record and any orders documented therein. Any exceptions are noted below.
[2020-10-03] MEDS ORDERED: ESMOLOL HCL INJ 10 MG/ML 10ML VIAL IV ONE (14:58)
--- NOTE | 2020-10-03 15:25 | XRay Report ---
XR shoulder RT min 2V routine CLINICAL HISTORY: Post shoulder surgery COMPARISON: Right shoulder radiographs August 17, 2020. FINDINGS: Alignment of the total right shoulder arthroplasty is anatomic. There is no periprosthetic fracture or unexpected radiopaque foreign body. There are skin ernesto. IMPRESSION: Expected findings following total right shoulder arthroplasty. ACT 112: Negative or not required by law. Electronically signed by: Basil Torres M.D. 10/03/2020 3:24 PM
--- NOTE | 2020-10-03 15:41 | Anesthesiology Progress Note ---
Date of Service October 03, 2020 Anesthesia Post Procedure Vital Signs Vital Signs: Temp Pulse Pulse Resp BP Pulse Ox 10/03/20 15:33 91 H 18 120/57 L 95 10/03/20 15:25 80 24 123/59 L 94 10/03/20 15:15 94 H 20 92/75 L 97 10/03/20 15:07 36.3 C L 87 16 108/54 L 95 10/03/20 11:59 36.6 C 49 L 16 128/67 97 10/03/20 09:30 36.7 C 54 L 20 134/68 98 10/03/20 08:42 36.8 C 55 L 20 160/70 H 98 Transfer of Care Handoff Completed per policy Notes Mental Status: alert / awake / arousable Patient Amnestic to Procedure: Yes Nausea / Vomiting: adequately controlled Pain: adequately controlled Airway Patency, RR, SpO2: stable & adequate BP & HR: stable & adequate Hydration State: stable & adequate Anesthetic Complications: no major complications apparent
[2020-10-03] MEDS ORDERED: MAGNESIUM HYDROXIDE SUSP 30 ML UDC PO PRN (15:57)
[2020-10-03] MEDS ORDERED: METOCLOPRAMIDE HCL INJ 5 MG/ML 2 ML VIAL IV PRN (15:57)
[2020-10-03] MEDS ORDERED: bisacodyL 10 MG SUPP PR PRN (15:57)
[2020-10-03] MEDS ORDERED: NALOXONE HCL 0.4 MG/1 ML VIAL/CARP IV PRN (15:57)
[2020-10-03] MEDS ORDERED: oxyCODONE HCL IR 5 MG TAB (IMMEDIATE RELEASE) PO PRN (15:57)
[2020-10-03] MEDS ORDERED: HYDROmorphone INJ 0.5 MG/0.5 ML SYR IV PRN (15:57)
[2020-10-03] MEDS: KETOROLAC TROMETHAMINE 15 MG/ML VIAL IV SCH ×2 (17:34→23:04)
[2020-10-03] MEDS: SODIUM CHLORIDE 0.9% 1000ML 1,000 ML IV SCH (17:34)
[2020-10-03] MEDS: rOPINIRole HCL 0.25 MG TABLET PO SCH (19:17)
[2020-10-03] MEDS: ceFAZolin 2000MG 2,000 MG/15 ML SYR IV SCH (20:05)
[2020-10-03] MEDS ORDERED: SENNA 8.6 MG TAB PO SCH (21:00)
[2020-10-03] MEDS ORDERED: LOPERAMIDE HCL 2 MG CAP PO PRN (21:00)
[2020-10-03] MEDS ORDERED: ATORVASTATIN 20 MG TAB PO SCH (21:00)
[2020-10-03] MEDS ORDERED: COUGH DROP (SUGAR FREE) LOZ 24 LOZ/1 BOX BUCCAL PRN (21:04)
[2020-10-03] MEDS ORDERED: COUGH DROP (SUGAR FREE) LOZ 24 LOZ/1 BOX BUCCAL ONE (21:30)
[2020-10-03] MEDS: ACETAMINOPHEN 500 MG TAB PO SCH (21:34)
[2020-10-03] MEDS: TAMSULOSIN HCL 0.4 MG CAP PO SCH (21:34)
[2020-10-03] MEDS: POTASSIUM CITRATE 10 MEQ TAB PO SCH (21:35)
[2020-10-03] MEDS: DOCUSATE SODIUM 100 MG CAP PO SCH (21:36)
[2020-10-03] MEDS: rOPINIRole HCL 1 MG TABLET PO SCH ×2 (23:04→23:37)
[2020-10-04] MEDS: rOPINIRole HCL 0.25 MG TABLET PO SCH ×2 (03:10→07:43)
[2020-10-04] MEDS: DUTASTERIDE: ORDER AWAITING ACTION SCH ×2 (03:22→07:44)
[2020-10-04] MEDS: ceFAZolin 2000MG 2,000 MG/15 ML SYR IV SCH (03:32)
[2020-10-04] MEDS: SODIUM CHLORIDE 0.9% 1000ML 1,000 ML IV SCH (03:43)
[2020-10-04] MEDS: KETOROLAC TROMETHAMINE 15 MG/ML VIAL IV SCH ×2 (05:42→11:31)
[2020-10-04] MEDS: ACETAMINOPHEN 500 MG TAB PO SCH (05:42)
--- NOTE | 2020-10-04 06:42 | Orthopedic Progress Note ---
Date of Service October 04, 2020 Assessment & Plan (1) Status post reverse arthroplasty of right shoulder: Overall is doing well. Is not any much pain in the right shoulder. He will be seen by physical therapy today for ambulation and range of motion exercises. He can be discharged home later today. He will follow-up with orthopedics in 2 weeks. Subjective Anthony was seen and examined at bedside this morning. Overall he is doing very well. Is not having any pain in the right shoulder. The nerve block is still working. He has no complaints.. Review of Systems All systems reviewed & are unremarkable except as noted in HPI & below. Physical Exam On physical examination of the right shoulder, he is wearing his sling as instructed. The dressing is clean and dry. The nerve block is still working and I am unable to get a good neurologic examination.. Results & Data Results & Data Laboratory Results . Diagnostic Findings Postoperative x-rays of the right shoulder show the prosthesis to be in anatomic alignment without any evidence of fracture, septation, or loosening. PG Care Time/CCT Total # of Minutes Spent Total Time Spent with Patient: Total time spent is greater than 50% in coordination of care (as documented) at patient's floor/unit and/or counseling patient: Coding Level of Care Code 99542 Post Operative Follow-Up Diagnoses Status post reverse arthroplasty of right shoulder Z96.611
--- NOTE | 2020-10-04 06:43 | Discharge Summary ---
Date of Service October 04, 2020 Admission HPI (Per Admitting) Anthony is a pleasant 75-year-old male who had a right shoulder replacement done about 7 years ago in [place]. Apparently the glenoid size was too small and it migrated medially. He now has an unstable glenoid and a painful shoulder. I have talked to him extensively about revision replacement. We did a full infection work-up which was negative. We sent him up for a Biomet VRS reverse shoulder replacement. After discussions in the office, he elected to proceed.. Admission Exam (Per Admitting) Physical examination of the right shoulder, he has about 140 degrees forward elevation 40 degrees of abduction and 40 degrees of external rotation. He has 4+ out of 5 motion of the full can testing. He has pain at end ranges of motion.. Principal Diagnosis Same as "Discharge Diagnosis" noted below under Discharge Instructions. Discharge Exam On physical examination of the right shoulder, he is wearing his sling as instructed. The dressing is clean and dry. The nerve block is still working and I am unable to get a good neurologic examination.. Discharge Data Procedures Performed Operation Date: 10/03/20 10:40 Actual Procedures p Removal of Right Total Shoulder Arthroplasty, Revision to Right Reverse Total Shoulder Arthroplasty(Right) - Jose Silverman DO Ordered Studies 10/03/20 05:00 US - OR guided needle placemen Routine Hospital Course (1) Status post reverse arthroplasty of right shoulder: On October 03, 2020 Anthony arrived at [facility] and underwent a right shoulder revision without complication. He had a general anesthetic and a right interscalene nerve block. Postoperatively he was placed in an arm sling and transferred to the general orthopedic floors. His hospital course was uneventful. On postop day #1 his vital signs were stable and his pain was well controlled. He was able to participate well with physical therapy doing ambulation and range of motion exercises. He was then discharged home. He will follow-up with orthopedics in 2 weeks. PG Care Time/CCT Total # of Minutes Spent Total Time Spent with Patient: Total time spent is greater than 50% in coordination of care (as documented) at patient's floor/unit and/or counseling patient: Discharge Plan Discharge Items Patient Disposition: Home - Home Health Services Reason For Visit: POST SURGICAL CARE Discharge Diagnosis: Right reverse shoulder replacement Activity: As commented below Non-emergency contact: Surgeon Call non-emergency contact if: your wound has increased redness and your wound has increased drainage Follow-up/Referrals: Sidney Conklin MD [Primary Care Provider] - Diet: Regular Addtl Attending Provider Instructions: Activity and Therapy Recommendations: * If you are using [facility] then therapy will be provided at your home until they feel you have accomplished all of your goals. * If you are using [facility] then Physical Therapy will be provided until they feel you are ready to start Outpatient Physical Therapy. * If you are not using home therapy then Outpatient Physical Therapy should start about 3-5 days from your day of surgery. Therapy will last about 8-12 weeks * Wear your sling for 3 weeks, unless otherwise instructed. You may remove your sling to shower and to dress, but otherwise, you should be in your sling at all times, including while sleeping * The shoulder replacement is very stable and you can use your hand while in the sling * You were shown a series of exercises in the hospital. Do these exercises daily including the exercises you were shown in physical therapy. Medications: * Narcotic You will likely be sent home from the hospital with a prescription for the narcotic pain medication that worked best throughout your stay. * Other medications may be prescribed for specific circumstances. If you have any questions, please call the office at . * Resume previous home medications unless otherwise instructed Dressing Care: Leave the Silverlon dressing in place for 7 days. After 7 days you may remove the dressing. If the incision is not draining then you may leave the ernesto open to air. If there is a little bit of drainage or if the ernesto are getting stuck on your clothing then cover the incision with a dry dressing. The ernesto will be removed at your 2 week follow-up appointment. Showering: You may shower with the Silverlon dressing in place. Do not let the shower spray hit the dressing directly. Pat the Silverlon dressing dry. If the dressing becomes wet underneath, then simply remove the dressing. Keep the incision dry until you are 7 days out from the day of surgery. After 7 days you may remove the Silverlon dressing and shower with the ernesto exposed. Let soapy water run over the ernesot and pat them dry. Do not scrub or soak the incision. Things To Watch For: * Drainage from the incision site that occurs more than one week after your surgery. * Increased redness at the incision site. * Fever above 102 degrees Fahrenheit. * Unusual chest pain or shortness of breath. * Call [facility] at with any of the above problems Follow-Up Visit: Follow-up with Dr. Silverman's PA (Jose Go) 2-3 weeks after your day of surgery. He will remove your ernesto and answer any questions. If you have any additional questions or concerns, Dr Silverman is usually in the office at the same time and will be available An appointment was probably scheduled when you signed-up for surgery in the office. If you have any questions call More detailed instructions as well as Frequently Asked Questions were provided in a folder by our office when you signed-up for surgery. Please review these instructions when you get home. If you have any further questions or concerns, please feel free to call the office at [phone] Pending Studies at Discharge: No Stand-Alone Forms: [facility] Medications and DC Order Prescriptions: New oxycodone 5 mg Tablet 5 mg PO Q4H PRN (Reason: pain) Qty: 60 RF: 0 Continued atorvastatin 40 mg tablet 20 mg PO HS RF: 0 cholecalciferol (vitamin D3) [Vitamin D3] 25 mcg (1,000 unit) capsule 25 mcg PO QPM RF: 0 diphenhydramine HCl [Benadryl] 25 mg capsule 25 mg PO HS RF: 0 omega 6-ewh-aad-fish oil [Fish Oil] 60-90-500 mg capsule 1 cap PO QPM RF: 0 multivitamin Tablet 1 tab PO QPM RF: 0 potassium citrate 10 mEq (1,080 mg) tablet extended release 10 meq PO BID Qty: 60 RF: 2 tamsulosin 0.4 mg capsule 0.4 mg PO BID Qty: 180 RF: 3 dutasteride 0.5 mg capsule 0.5 mg PO DAILY Qty: 30 RF: 11 ropinirole 0.5 mg Tablet 0.5 mg PO 5XD RF: 0 loperamide [Imodium] 2 mg Capsule 2 mg PO QPM RF: 0 Discontinued hydrocodone-acetaminophen 5-325 mg tablet 1 tab PO BID PRN (Reason: pain) RF: 0 Discharge Orders: Discharge Order (Routine); Ordered 10/04/20 Ordered By: Jose Silverman Admission Data Admit Date/Time: 10/03/20 15:02 Attending Provider: Jose Silverman Admit Provider: Jose Silverman Primary Care Provider: Sidney Conklin
[2020-10-04] MEDS ORDERED: dexAMETHasone 4 MG TAB PO SCH (08:00)
[2020-10-04] MEDS: POTASSIUM CITRATE 10 MEQ TAB PO SCH (08:33)
[2020-10-04] MEDS: TAMSULOSIN HCL 0.4 MG CAP PO SCH (08:34)
[2020-10-04] MEDS: DOCUSATE SODIUM 100 MG CAP PO SCH (08:35)
[2020-10-04] MEDS ORDERED: MULTIVITAMIN TAB PO SCH (09:00)
== END 2020-10-04 11:53 | disposition home or self-care (01) | DRG 483 ==
LOC: ASU 08:15 → 3E 15:02

== ENCOUNTER 2021-12-04 09:59 | Observation (INO) ==
--- NOTE | 2021-10-27 15:42 | PAT Medication Instructions ---
Medication Instructions Date of Service October 27, 2021 Home Medications Medication Instructions Recorded oxycodone-acetaminophen 5 mg-325 1 tab PO Q6H PRN #60 tab 08/16/21 mg tablet (Percocet) sildenafil 50 mg tablet 50 mg PO DAILY PRN #30 tab 08/23/21 cholecalciferol (vitamin D3) 25 mcg (1,000 unit) capsule (Vitamin D3) 25 mcg PO QDL multivitamin 1 tab PO Q OTHER DAY omega 6-knz-hch-fish oil 60 mg-90 mg-500 mg capsule (Fish Oil) 1 cap PO Q OTHER DAY ropinirole 0.5 mg tablet 0.5 mg PO 6XD oxycodone-acetaminophen 5 mg-325 mg tablet (Percocet) 1 tab PO Q6H PRN sildenafil 50 mg tablet 50 mg PO DAILY PRN atorvastatin 20 mg tablet 20 mg PO HS Continue as directed ropinirole 0.5 mg tablet 0.5 mg PO 6XD (do not take day of surgery) STOP taking 2 weeks before surgery omega 6-vyp-okt-fish oil 60 mg-90 mg-500 mg capsule (Fish Oil) 1 cap PO Q OTHER DAY STOP taking 24 hours before surgery sildenafil 50 mg tablet 50 mg PO DAILY PRN DO NOT take the morning of surgery cholecalciferol (vitamin D3) 25 mcg (1,000 unit) capsule (Vitamin D3) 25 mcg PO QDL multivitamin 1 tab PO Q OTHER DAY ropinirole 0.5 mg tablet 0.5 mg PO 6XD Take morning of surgery With a small sip of water, OTHERWISE NOTHING TO EAT OR DRINK AFTER MIDNIGHT: oxycodone-acetaminophen 5 mg-325 mg tablet (Percocet) 1 tab PO Q6H PRN(okay to take up to 4 hours prior to surgery if needed) Take evening before surgery oxycodone-acetaminophen 5 mg-325 mg tablet (Percocet) 1 tab PO Q6H PRN(if needed) atorvastatin 20 mg tablet 20 mg PO HS Other Notes If you have any questions please call us at [phone] or [phone] or [phone] or [phone]
--- NOTE | 2021-11-01 14:54 | Anesthesiology Consultation ---
Date of Service November 01, 2021 Assessment & Plan (1) Encounter for pre-operative examination: - COVID screening: Per assessment on 11/01: No known COVID-19 positive contacts or current COVID-19 related symptoms. Travel screen negative. Patient vaccinated. Surgeon arranging preop COVID testing. Awaiting results. - S/P Cystolithopaxy, TURP (04/25/21): LMA#5, atraumatic LMA attempt x1 at [facility]. No issues per post-op anesthesia progress note. Chart Review Chart Review: Acceptable Risk for Surgery and Patient seen in Pre Admission Testing Teaching & Discussion Pre-Anesthesia Teaching/Discussion Notes: Instructed NPO after midnight before surgery,except medications with 15 cc of water. Medication instructions provid ed according to the PAT guidelines. History Surgery Operation Date: 12/04/21 07:00 Proposed Procedures p Revision Right Total Knee Arthroplasty - Jose Silverman, Height/Weight Height: 5 ft 7 in Weight: 72.1 kg Allergies Allergy/AdvReac Type Severity Reaction Status Date / Time No Known Allergies Allergy Unknown Verified 10/27/21 14:42 Medications Home Medications Medication Instructions Recorded Confirmed Last Taken cholecalciferol (vitamin D3) 25 25 mcg PO QDL 08/02/20 10/27/21 04/24/21 12:00 mcg (1,000 unit) capsule (Vitamin D3) multivitamin 1 tab PO Q OTHER DAY 08/02/20 10/27/21 04/24/21 12:00 omega 1-dna-bnn-fish oil 60 mg-90 1 cap PO Q OTHER DAY 08/02/20 10/27/21 04/20/21 mg-500 mg capsule (Fish Oil) ropinirole 0.5 mg tablet 0.5 mg PO 6XD 08/18/20 10/27/21 04/25/21 09:00 oxycodone-acetaminophen 5 mg-325 1 tab PO Q6H PRN #60 tab 08/16/21 10/27/21 Unknown mg tablet (Percocet) sildenafil 50 mg tablet 50 mg PO DAILY PRN #30 tab 08/23/21 10/27/21 Unknown atorvastatin 20 mg tablet 20 mg PO HS 10/27/21 10/27/21 Unknown oxycodone 5 mg tablet 5 mg PO Q6 PRN #30 tab 11/01/21 11/01/21 Unknown Past Medical History Medical History (Updated 10/31/21 @ 09:28 by Umm Holland) Cardiac murmur Rheumatic fever age 9 "No murmur" per 04/25/21 anesthesiologist review prior to cystolithopaxy/TURP at [facility] Depression No meds Dislocation of PIP joint of finger History of prediabetes Diet controlled Hypertension Meds discontinued > controlled off meds per pt Restless leg syndrome Spinal stenosis of lumbar region Spondylisthesis Lumbar Temporomandibular joint disorder Occasional right side spasms, no locking Exercise / Class Metabolic Activity II 4-5 Yardwork/Stairs/Walk up hill Past Family History Family History (Updated 10/27/21 @ 14:51 by Karina Seymour RN) Mother No problems noted. Father Family history of diabetes mellitus Heart disease Brother Family history of esophageal cancer Family history of diabetes mellitus Other No family history of adverse response to anesthesia Past Surgical History Surgical History (Updated 11/01/21 @ 14:52 by Umm Holland) History of colonoscopy History of lumbar fusion History of transurethral resection of prostate Cystolithopaxy, TURP (04/25/21): LMA#5, atraumatic LMA attempt x1 at [facility]. No issues per post-op anesthesia progress note. Hx of total knee arthroplasty R/L Hx of total shoulder replacement Right, subsequent Right TSA revision (10/03/20): Grade view 1, MAC#3, ETT 7.5 + PNB at [facility] Past Anesthesia History No Hx of Anesthesia Complications and No Family Hx of Anesthesia Complications History of PONV No Hx of PONV and No Hx of Motion Sickness Social History Smoking Status: Never smoker Do You Dip or Chew Tobacco: No Hx Alcohol Use: Yes Alcohol type: beer alcohol intake frequency: holidays/special occasions only Hx Substance Use: Yes (medical marijuana--gummies/cream) substance use type: marijuana (occasional inhalation/gummies marijuana use) Review of Systems Patient denies chest pain, shortness of breath, dyspnea on exertion, fever, chills, cough, wheezing, palpitations. Physical Exam Vital Signs VITALS BP 114/64 P 55 TEMP 98.2 SP02 96%RA RESP 16 PHYSICAL Full cervical extension range of motion. Full TMJ range of motion. TMD 3 finger breaths Mallampati Score 2 Dentition: partials upper/lower Lungs: clear throughout to auscultation Cardiac: regular rate and rhythm, no murmurs noted Spine: normal Carotid arteries: negative bruit Extremities: no edema Lab Results Anesthesia Preop Results Results Anesthesia Widget: WBC 7.07 K/uL (4.8-10.8) 11/01/21 Hgb 15.5 g/dL (14.0-18.0) 11/01/21 Hct 43.9 % (42-52) 11/01/21 Plt 197 K/uL (130-400) 11/01/21 Na 138 mmol/L (136-145) 11/01/21 K 4.8 mmol/L (3.5-5.1) 11/01/21 Cl 106 mmol/L (98-107) 11/01/21 CO2 28 mmol/L (21-32) 11/01/21 BUN 22 mg/dl (6-23) 11/01/21 Creat 0.91 mg/dl (0.6-1.4) 11/01/21 Glucose Level 109 mg/dl (70-99(Fasting)) H 11/01/21 PT 10.5 Seconds (9.0-12.0) 11/01/21 PTT 27.7 Seconds (21.0-31.0) 11/01/21 INR 1.0 (0.9-1.1) 11/01/21 Blood Type O Positive 11/01/21 Antibody Screen NEGATIVE 11/01/21 Testing Electrocardiogram Date: 04/17/21 Findings: + NSR @ (64) Chest X-Ray Date: 04/17/21 Chest/Abd x-ray: FINDINGS: Single frontal view of the chest demonstrates the cardiomediastinal silhouette to be within normal limits. The lungs are clear of acute alveolar opacities. There is no evidence for pleural effusion. There is no evidence for vascular congestion. There is no acute osseous pathology. Abdomen: There is no free air or significant air-fluid levels present. The bowel gas pattern is within normal limits without evidence for dilatation or obstruction. There is no evidence for organomegaly or gross intra-abdominal mass. Compared to the previous examination, no definite calcifications are superimposed over the bladder. Calcifications characteristic of phleboliths are seen within the pelvis bilaterally. Calcification superimposed of the floor the bladder is again most characteristic of prostate calcification. No acute osseous pathology. IMPRESSION: No acute chest disease. Calcifications within the pelvis as described above.
--- NOTE | 2021-11-30 08:12 | History & Physical Report ---
Date of Service November 30, 2021 Assessment & Plan (1) Aseptic loosening of prosthetic knee: We will proceed with a revision right knee replacement. Postoperatively he will be started on aspirin for DVT prophylaxis and kept overnight in the hospital for postoperative medical management. He plans to use energy physical therapy upon discharge. History of Present Illness Chief Complaint: Aseptic loosening of the right knee. Primary Care Provider: Sidney Conklin MD Anthony is a pleasant 76-year-old male who underwent bilateral knee replacements in [place] in 2013. He hadDePuy Rotating Platform SIGMA knee replacements. Heinitially didwell but it has been worse recently.Hisright kneenow hurtswith everystep hetakes. Bloodwork showedno signs of infection. Aspirate showed just a bloody aspirate with no signs of infection. 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 . Allergies Allergy/AdvReac Type Severity Reaction Status Date / Time No Known Allergies Allergy Unknown Verified 10/27/21 14:42 Home Medications Medication Instructions Recorded Confirmed Type cholecalciferol (vitamin D3) 25 25 mcg PO QDL 08/02/20 10/27/21 History mcg (1,000 unit) capsule (Vitamin D3) multivitamin 1 tab PO Q OTHER DAY 08/02/20 10/27/21 History omega 3-qpn-skm-fish oil 60 mg-90 1 cap PO Q OTHER DAY 08/02/20 10/27/21 History mg-500 mg capsule (Fish Oil) ropinirole 0.5 mg tablet 0.5 mg PO 6XD 08/18/20 10/27/21 History oxycodone-acetaminophen 5 mg-325 1 tab PO Q6H PRN #60 tab 08/16/21 10/27/21 Rx mg tablet (Percocet) sildenafil 50 mg tablet 50 mg PO DAILY PRN #30 tab 08/23/21 10/27/21 Rx atorvastatin 20 mg tablet 20 mg PO HS 10/27/21 10/27/21 History oxycodone 5 mg tablet 5 mg PO Q6 PRN #30 tab 11/01/21 11/01/21 Rx Past Med/Surg History Medical History Cardiac murmur Rheumatic fever age 9 "No murmur" per 04/25/21 anesthesiologist review prior to cystolithopaxy/TURP at [facility] Depression No meds Dislocation of PIP joint of finger History of prediabetes Diet controlled Hypertension Meds discontinued > controlled off meds per pt Restless leg syndrome Spinal stenosis of lumbar region Spondylisthesis Lumbar Temporomandibular joint disorder Occasional right side spasms, no locking Surgical History History of colonoscopy History of lumbar fusion History of transurethral resection of prostate Cystolithopaxy, TURP (04/25/21): LMA#5, atraumatic LMA attempt x1 at [facility]. No issues per post-op anesthesia progress note. Hx of total knee arthroplasty R/L Hx of total shoulder replacement Right, subsequent Right TSA revision (10/03/20): Grade view 1, MAC#3, ETT 7.5 + PNB at [facility] Family History Mother No problems noted. 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 Physical Exam On physical examination, he walks an antalgic gait. He has a 1+ effusion on his right knee. He has range of motion from 0 to 120 degrees. No instability. Pain over the condyles. Constitutional WD/WN, vitals as above Eyes PERRL, conjunctivae normal, anicteric sclerae ENMT external ear and nose normal, oropharynx normal Neck trachea midline, no thyromegaly Respiratory normal respiratory effort Cardiovascular RRR, no murmur, no edema Gastrointestinal (Abdomen) normal bowel sounds, soft, nontender, no hepatosplenomegaly Psychiatric A+Ox3, euthymic affect Results & Data Results & Data Laboratory Results . Diagnostic Findings X-rays of the right knee show signs of aseptic loosening of the prosthesis with radiolucent lines around the tibia and femoral components. Bone scan of the right knee shows signs of aseptic loosening. PG Care Time/CCT Total # of Minutes Spent Total Time Spent with Patient: Total time spent is greater than 50% in coordination of care (as documented) at patient's floor/unit and/or counseling patient: Coding Level of Care Code None Diagnoses Aseptic loosening of prosthetic knee T84.038A; Z96.659
[~2021-12-04 09:59] MED LIST changes: +Ketorolac (*for OR use only*) 30 MG, dexAMETHasone 4 MG, KETAMINE HCL (**OR use only) 1... INFIL SCH; +LIDOCAINE 2% MPF LOCAL 5 ML VIAL INFIL ONE; -LR 15ML/HR IV SCH; +LR 500ML BOLUS, THEN 15ML/HR IV SCH; +MIDAZOLAM HCL 1 MG/ML 2ML VIAL ONE; +ONDANSETRON INJ 2 MG/ML 2 ML VIAL ONE; +PROPOFOL IV EMULSION 10 MG/ML 20 ML VIAL IV ONE; +ROPIVACAINE 0.5% 5 MG/ML 30 ML VIAL ONE; +ROPIVACAINE 0.5% HCL/PF 150 MG, BUPIVACAINE 0.75% MPF 20 ML, EPINEPHrine 30MG/30ML (OR ... INFIL SCH; -ROPIVACAINE 0.5% HCL/PF 150 MG, BUPIVACAINE 0.75% MPF 20 ML, EPINEPHrine 30MG/30ML (OR ... INSTIL SCH; -ceFAZolin 1000MG 1,000 MG/7.5 ML SYR IV SCH; +ceFAZolin 2000MG 2,000 MG/15 ML SYR IV SCH
[2021-12-04] MEDS ORDERED: VANCOMYCIN CONSULT ACTIVE PRN (10:17)
--- NOTE | 2021-12-04 10:18 | History & Physical Bridge Note ---
Date of Service December 04, 2021 History & Physical Bridge Note I have examined the patient, reviewed the History & Physical and in the interval since the performance of the History & Physical I have noted the following changes of clinical significance: no changes noted
[2021-12-04] MEDS ORDERED: ONDANSETRON INJ 2 MG/ML 2 ML VIAL IV PRN ×2 (10:22→15:55)
[2021-12-04] MEDS ORDERED: ATROPINE SULFATE 0.1 MG/ML 10ML SYR IV PRN (10:22)
[2021-12-04] MEDS ORDERED: ePHEDrine sulfate 50 MG/ML AMP IV PRN (10:22)
[2021-12-04] MEDS ORDERED: fentaNYL citrate 100 MCG/2 ML VIAL IV PRN (10:22)
[2021-12-04] MEDS ORDERED: VANCOMYCIN HCL 1,000 MG in SODIUM CHLORIDE 0.9% 250 ML IV SCH (10:30)
[2021-12-04] MEDS ORDERED: VANCOMYCIN HCL 1,000 MG/270 ML BAG IV SCH (10:30)
[2021-12-04] MEDS ORDERED: ORTHO JOINT ANESTHETIC ONE (11:03)
[2021-12-04] MEDS ORDERED: GLYCOPYRROLATE 0.2 MG/ML VIAL ONE (12:00)
[2021-12-04] MEDS ORDERED: fentaNYL citrate 100 MCG/2 ML VIAL ONE ×2 (12:11→14:13)
[2021-12-04] MEDS ORDERED: ePHEDrine sulfate 50 MG/ML AMP ONE (12:29)
--- NOTE | 2021-12-04 14:39 | Operative Report ---
PG Post Operative Report Pre & Post Diagnosis Operation Date: 12/04/21 12:30 Pre-Op Diagnosis: Aseptic Loosening Right Total Knee Arthroplasty Post-Op Diagnosis: Aseptic Loosening Right Total Knee Arthroplasty I identified the patient and participated in the time-out.: Yes Procedure Operation Date: 12/04/21 12:30 Actual Procedures p Revision Right Total Knee Arthroplasty both femoral and tibial components - Jose Silverman DO Surgeon Jose Silverman DO Ic Engineer Jose Go PAC Estimated Blood Loss 50 Findings Consistent with Post-Op Diagnosis Specimens None Complications none Disposition Disposition: Recovery Room Description of Procedure Implants used: I used a Frandy persona revision knee system with a size 7 distal femur with a 13 x 135 stem and a 3 mm offset. There is a 5 mm distal medial augment, a 5 mm posterior medial augment, a 15 mm distal lateral augment, and a 10 mm posterior lateral augment. There is a size G tibia with an 11 x 135 stent and a 6 mm offset. I used a 16 mm CCK polyethylene insert. On December 04, 2021 Anthony arrived at [facility] for the above procedure. He was seen in the preoperative holding area and the operative extremity was identified and signed. He was given a preoperative antibiotic and a spinal anesthetic. He was brought back to the operating room and laid on the table in supine position. He was put under basic sedation. The right knee was then prepped and draped in sterile fashion. A timeout was done. The patient and the operative extremity was properly identified. The previous midline incision was opened back up. Dissection was taken down to the extensor mechanism and a medial parapatellar arthrotomy was used. There was normal-appearing serous fluid that exited the joint. The medial retinaculum was released. Scar tissue was released from around the medial lateral gutters. The knee was then flexed. The post for the polyethylene component was then cut with an oscillating saw and the polyethylene component was removed. The femoral component was observed first. It was not grossly loose. With only a couple very simple passes with a small oscillating blade, the femoral component became loose and was removed. The bone did not appear fixated to the femoral component. There was a large area of osteolysis off the lateral femoral condyle. 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 Significant time was removing all soft tissue from around the distal femur. The proximal tibia was then exposed. The tibial component seemed fairly well fixated. An oscillating blade and osteo tomes were used to free the tibial plate. The tibial plate was then removed. The cement did not seem to bind very well to the tibial plate. All excess cement was then removed from around the proximal tibia. The proximal tibia was then exposed. An external tibial guide was used and a 2 mm cut was made off the tibial plateau. Sequential reaming of the tibia up to a size 11 reamer was done. The tibia measured to be a size G. A 6 mm offset gave the best fit. The size G tibia with a size 11 x 135 mm stem with a 6 mm offset was then assembled as a trial and impacted in the place. I was happy with the overall fit and rotation. The distal femur was then exposed. The distal femur measured to be about a size 7. Sequential reaming of the femoral canal was done up to a size 13. A 3 mm offset seem to be the best fit. A 4-in-1 cutting block was placed off the distal femur. No resection had to be made distally. Off the 4-in-1 cutting block to the anterior posterior and chamfer cuts were then made. The trial size 7 femur with a 13 mm x 135 mm stem and a 3 mm offset was then assembled on the back table and impacted into the distal femur. Laterally a 10 mm posterior augment cut was made. Medially a posterior 5 mm augment cut was made. Laterally a 15 mm distal femoral cut was made and immediately a 5 mm distal augment cut was made. The trial was then removed and the augments were placed on the trial. The trial was once again impacted in the place. Everything seemed to fit well. A 16 mm CCK polywas trialed. The knee was brought through a full range of motion and felt to be stable. All trial components were then removed. The tourniquet was deflated and hemostasis was obtained. The final components were assembled on the back table. The components were then cemented into place with Biomet cement. Once cement had hardened, a 60 mm CCK polyethylene insert was then snapped into place. The knee was brought through full range of motion and felt to be stable. The extensor mechanism was then closed with #1 Vicryl suture. Skin was closed with 2-0 Vicryl, 3 oh VueLock suture, and ernesto. He was then placed in a soft compressive dressing. He was then transferred to a hospital bed and taken to the postanesthesia care unit in stable condition. He tolerated the procedure well. Jose Go PA-C, was present for the entire procedure. He was critical for pat ient positioning, prepping, draping, retraction exposure, wound closure and application of sterile dressing. I attest to the content of the Intraoperative Record and any orders documented therein. Any exceptions are noted below.
--- NOTE | 2021-12-04 15:16 | XRay Report ---
TWO VIEWS RIGHT KNEE CLINICAL HISTORY: Postoperative examination. FINDINGS: AP and crosstable lateral portable views of the right knee are obtained. A right knee arthr oplasty is in near anatomic alignment. There are long tibial and femoral stems. There has been unders urface remodeling of the patella. No acute fracture is seen. There are expected postoperative changes around the knee including skin clips, soft tissue edema, and subcutaneous gas. IMPRESSION: Expected postoperative changes status post right knee arthroplasty. No acute fracture is seen. ACT 112: Negative or not required by law. Electronically signed by: Roman Cruz M.D. 12/04/2021 3:15 PM
--- NOTE | 2021-12-04 15:25 | Anesthesiology Progress Note ---
Date of Service December 04, 2021 Anesthesia Post Procedure Vital Signs Vital Signs: Temp Pulse Resp BP Pulse Ox 12/04/21 15:15 75 15 95/59 L 98 12/04/21 15:05 63 23 120/87 95 12/04/21 14:56 97.9 F 82 15 113/54 L 99 12/04/21 10:36 97.9 F 56 L 18 142/75 H 96 Pain Intensity Right Knee: Pain Intensity: 2 Transfer of Care Handoff Completed per policy Notes Mental Status: alert / awake / arousable and participated in evaluation Patient Amnestic to Procedure: Yes Nausea / Vomiting: adequately controlled Pain: adequately controlled Airway Patency, RR, SpO2: stable & adequate BP & HR: stable & adequate Hydration State: stable & adequate Neuraxial Anesthesia: was administered and sensory block is resolving Anesthetic Complications: no major complications apparent and Pt Satisfied with anesthetic care
[2021-12-04] MEDS ORDERED: oxyCODONE HCL IR 5 MG TAB (IMMEDIATE RELEASE) PO PRN (15:55)
[2021-12-04] MEDS ORDERED: NON-FORMULARY MEDICATION (Sildenafil 50 mg tablet) PO PRN (15:55)
[2021-12-04] MEDS ORDERED: rOPINIRole HCL 0.25 MG TABLET PO SCH (15:55)
[2021-12-04] MEDS ORDERED: bisacodyL 10 MG SUPP PR PRN (15:55)
[2021-12-04] MEDS ORDERED: NALOXONE HCL 0.4 MG/1 ML VIAL/CARP IV PRN (15:55)
[2021-12-04] MEDS ORDERED: HYDROmorphone INJ 0.5 MG/0.5 ML SYR IV PRN (15:55)
[2021-12-04] MEDS ORDERED: MAGNESIUM HYDROXIDE SUSP 30 ML UDC PO PRN (15:55)
[2021-12-04] MEDS ORDERED: METOCLOPRAMIDE HCL INJ 5 MG/ML 2 ML VIAL IV PRN (15:55)
[2021-12-04] MEDS: SODIUM CHLORIDE 0.9% 1000ML 1,000 ML IV SCH (16:33)
[2021-12-04] MEDS: KETOROLAC TROMETHAMINE 15 MG/ML VIAL IV SCH ×2 (16:38→22:18)
[2021-12-04] MEDS ORDERED: Nursing to Pharmacy Communication SCH (20:00)
[2021-12-04] MEDS: ASPIRIN 81 MG ECTAB PO SCH (20:52)
[2021-12-04] MEDS: DOCUSATE SODIUM 100 MG CAP PO SCH (20:53)
[2021-12-04] MEDS: rOPINIRole HCL 0.25 MG TABLET PO SCH (20:54)
[2021-12-04] MEDS: ceFAZolin 2000MG 2,000 MG/15 ML SYR IV SCH (20:59)
[2021-12-04] MEDS ORDERED: ATORVASTATIN 20 MG TAB PO SCH (21:00)
[2021-12-04] MEDS ORDERED: SENNA 8.6 MG TAB PO SCH (21:00)
[2021-12-04] MEDS: ACETAMINOPHEN 500 MG TAB PO SCH (22:18)
[2021-12-05] MEDS: rOPINIRole HCL 0.25 MG TABLET PO SCH ×4 (00:14→10:16)
[2021-12-05] MEDS: SODIUM CHLORIDE 0.9% 1000ML 1,000 ML IV SCH (00:18)
[2021-12-05] MEDS: KETOROLAC TROMETHAMINE 15 MG/ML VIAL IV SCH ×2 (03:48→09:24)
[2021-12-05] MEDS: ceFAZolin 2000MG 2,000 MG/15 ML SYR IV SCH (05:20)
[2021-12-05] MEDS: ACETAMINOPHEN 500 MG TAB PO SCH (05:20)
--- NOTE | 2021-12-05 06:43 | Orthopedic Progress Note ---
Date of Service December 05, 2021 Assessment & Plan (1) Status post revision of total replacement of right knee: Overall he is doing well. Is not having too much pain in the knee. He will be seen by physical therapy today for ambulation and range of motion exercises. He is on aspirin for DVT prophylaxis. He can be discharged home later today. He will follow-up with orthopedics in 2 weeks. Subjective Anthony was seen and examined at bedside this morning. Overall is doing well. He is having some soreness in the knee but is not too bad. He was up and ambulating in the hallways yesterday. He has no complaints. Review of Systems All systems reviewed & are unremarkable except as noted in HPI & below. Physical Exam On physical examination of the right knee, the dressing is clean and dry. His leg is out full extension. He has active dorsiflexion plantarflexion of his right ankle. Results & Data Results & Data Laboratory Results . Diagnostic Findings Postoperative x-rays of the right knee show the prosthesis to be in anatomic alignment without any evidence of fracture, desiccation, or loosening. PG Care Time/CCT Total # of Minutes Spent Total Time Spent with Patient: Total time spent is greater than 50% in coordination of care (as documented) at patient's floor/unit and/or counseling patient: Coding Level of Care Code 85461 Post Operative Follow-Up Diagnoses Status post revision of total replacement of right knee Z96.651
--- NOTE | 2021-12-05 06:44 | Discharge Summary ---
Date of Service December 05, 2021 Admission HPI (Per Admitting) Anthony is a pleasant 76-year-old male who underwent bilateral knee replacements in [place] in 2013. He hadDePuy Rotating Platform SIGMA knee replacements. Heinitially didwell but it has been worse recently.Hisright kneenow hurtswith everystep hetakes. Bloodwork showedno signs of infection. Aspirate showed just a bloody aspirate with no signs of infection. 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 . Admission Exam (Per Admitting) On physical examination, he walks an antalgic gait. He has a 1+ effusion on his right knee. He has range of motion from 0 to 120 degrees. No instability. Pain over the condyles. Principal Diagnosis Same as "Discharge Diagnosis" noted below under Discharge Instructions. Discharge Exam On physical examination of the right knee, the dressing is clean and dry. His leg is out full extension. He has active dorsiflexion plantarflexion of his right ankle. Discharge Data Procedures Performed Operation Date: 12/04/21 12:30 Actual Procedures p Revision Right Total Knee Arthroplasty(Right) - Jose Silverman DO Ordered Studies 12/04/21 05:00 US - OR guided needle placemen Routine Hospital Course (1) Status post revision of total replacement of right knee: On December 04, 2021 Anthony arrived at [facility] and underwent a revision right knee replacement without complication. He had a spinal anesthetic. Postoperatively he was started on aspirin for DVT prophylaxis and transferred to the general orthopedic floors. His hospital course was uneventfu l. On postop day #1, his vital signs were stable and his pain was well controlled. He was able to participate well with physical therapy doing ambulation and range of motion exercises. He was then discharged home. He will follow-up with orthopedics in 2 weeks. PG Care Time/CCT Total # of Minutes Spent Total Time Spent with Patient: Total time spent is greater than 50% in coordination of care (as documented) at patient's floor/unit and/or counseling patient: Discharge Plan Discharge Items Patient Disposition: Home - Home Health Services Reason For Visit: Painful Right Total Knee Arthroplasty Discharge Diagnosis: Right revision knee replacement Activity: Per Instructions section Non-emergency contact: Surgeon Call non-emergency contact if: your wound has increased redness and your wound has increased drainage Follow-up/Referrals: Sidney Conklin MD [Primary Care Provider] - Diet: Regular Addtl Attending Provider Instructions: Activity and Therapy Recommendations: * If you are using [facility] then therapy will be provided at your home until they feel you have accomplished all of your goals. * If you are using [facility] then Physical Therapy will be provided until they feel you are ready to start Outpatient Physical Therapy. * If you are not using home therapy then Outpatient Physical Therapy should start about 3-5 days from your day of surgery. Therapy will last about 6-10 weeks * It is important not to put a pillow under your knee when you are relaxing or sleeping. It is just as important to make sure you are getting your knee perfectly straight as it is to regain your knee bend. * You were shown a series of exercises in the hospital. Do these exercises three times each day including the exercises you were shown in physical therapy. * Get up and walk several times each day. For the first four weeks, try not to stand or walk for more than one hour at a time. If you do stand or walk for more than one hour, you will not hurt anything, but your leg will likely swell. * As you feel comfortable, you may change from the walker or crutches to a cane and then to independent walking. Medications: * Narcotic You will likely be sent home from the hospital with a prescription for the narcotic pain medication that worked best throughout your stay. * Aspirin Most patients will be required to take Aspirin 81mg twice a day for 6 weeks after surgery. This is obtained [id number] and a prescription is not necessary. * Other medications may be prescribed for specific circumstances. If you have any questions, please call the office at . * Resume previous home medications unless otherwise instructed TEDs/Elastic Stockings: The white elastic stockings help limit swelling and prevent blood clots from forming in your legs.~ The more you wear them, the more they work. Wear them for six weeks. Dressing Care: The dressing can be changed after physical therapy on postop day #1. Daily dry dressing changes for a few days, especially if the incision is still draining some. If the incision is not draining then you may leave the ernesto open to air. If there is a little bit of drainage or if the ernesto are getting stuck on your clothing then cover the incision with a dry dressing. The ernesto will be removed at your 2 week follow-up appointment. Showering: You may shower 5 days from the day of surgery as long as the incision is no longer draining. You may shower with the ernesto exposed. Let soapy water run over the ernesto and pat them dry. Do not scrub or soak the incision. Things To Watch For: * Drainage from the incision site that occurs more than one week after your surgery. * Increased redness at the incision site. * Fever above 102 degrees Fahrenheit. * Unusual chest pain or shortness of breath. * Call [facility] at with any of the above problems Follow-Up Visit: Follow-up with Dr. Silverman's PA (Jose Go) 2-3 weeks after your day of surgery. He will remove your ernesto and answer any questions. If you have any additional questions or concerns, Dr Silverman is usually in the office at the same time and will be available An appointment was probably scheduled when you signed-up for surgery in the office. If you have any questions call Office Instructions: More detailed instructions as well as Frequently Asked Questions were provided in a folder by our office when you signed-up for surgery. Please review these instructions when you get home. If you have any further questions or concerns, please feel free to call the office at [phone] Pending Studies at Discharge: No Stand-Alone Forms: My [facility] Medications and DC Order Prescriptions: New aspirin 81 mg Tablet,Delayed Release (Dr/Ec) 81 mg PO BID 42 Days Qty: 84 RF: 0 Continued sildenafil 50 mg tablet 50 mg PO DAILY PRN (Reason: sexual activity) Qty: 30 RF: 0 cholecalciferol (vitamin D3) [Vitamin D3] 25 mcg (1,000 unit) capsule 25 mcg PO QDL RF: 0 omega 8-mgf-tgs-fish oil [Fish Oil] 60-90-500 mg capsule 1 cap PO Q OTHER DAY RF: 0 multivitamin Tablet 1 tab PO Q OTHER DAY RF: 0 oxycodone 5 mg tablet 5 mg PO Q6 PRN (Reason: pain) Qty: 30 RF: 0 ropinirole 0.5 mg Tablet 0.5 mg PO 6XD RF: 0 atorvastatin 20 mg Tablet 20 mg PO HS RF: 0 lisinopril 5 mg Tablet 5 mg PO DAILY RF: 0 Marijuana Gummies 1 dose PO DAILY PRN (Reason: Pain) RF: 0 oxycodone-acetaminophen [Percocet] 5-325 mg tablet 1 tab PO Q6H PRN (Reason: pain) Qty: 60 RF: 0 Discharge Orders: Discharge Order (Routine); Ordered 12/05/21 Ordered By: Jose Silverman Admission Data Admit Date/Time: 12/04/21 14:53 Attending Provider: Jose Silverman Admit Provider: Jose Silverman Primary Care Provider: Sidney Conklin
[2021-12-05] MEDS ORDERED: dexAMETHasone 4 MG TAB PO SCH (08:00)
[2021-12-05] MEDS ORDERED: lisinopril 5 MG TAB PO SCH (09:00)
[2021-12-05] MEDS ORDERED: MULTIVITAMIN TAB PO SCH (09:00)
[2021-12-05] MEDS: DOCUSATE SODIUM 100 MG CAP PO SCH (09:24)
[2021-12-05] MEDS: ASPIRIN 81 MG ECTAB PO SCH (09:24)
== END 2021-12-05 13:10 | disposition home health service (06) ==
LOC: ASU 09:59 → 3E 09:59